=== PATIENT | male | born 1970 | race Caucasian/White ===

== ENCOUNTER 2025-03-08 14:04 | Outpatient (OUT) | payer OTHER, SELFPAY ==
--- NOTE | 2025-03-08 14:18 | ECG_ITS ---
[facility] Test Date: 2025-03-08 Pat Name: AMANDA COHN Department: Room: - Gender: Male Ed Tech: : 1970 Requested By: JASON QUINONEZ Order Number: [id number] Reading MD: MARIAM RAMOS Measurements Intervals [place] Rate: 57 P: 5 PA: 128 QRS: 24 QRSD: 101 T: 19 QT: 407 QTc: 400 Interpretive Statements SINUS BRADYCARDIA No previous ECG available for comparison Electronically Signed On 03-09-2025 16:42:55 EST by MARIAM RAMOS
--- NOTE | 2025-03-08 14:42 | XR_ITS ---
[address] [address] Patient Name: AMANDA COHN MRN: [id number] date: 1970 Sex: M Assigned Patient Location: [facility] Current Patient Location: [facility] Accession/Order Number: [id number] Exam Date: 03/08/2025 14:53 Report Date: 03/08/2025 15:07 At the request of: JASON QUINONEZ MD Procedure: XR chest 2V Chest 2 views CLINICAL HISTORY: Preop exam COMPARISON: None FINDINGS: Heart normal in size. Lungs are clear. No free air. XR/XR chest 2V IMPRESSION: NO ACUTE CARDIOPULMONARY ABNORMALITY. Impression dictated by: Epi Chávez Jr. DFainaOFaina 03/08/2025 3:07 PM Dictation Location: [place] [address] Electronically authenticated by: [id number] Y Date: 03/08/2025 15:07
--- NOTE | 2025-03-08 14:51 | P.GSHP_ITS ---
History of Present Illness History of Present Illness Chief complaint: penile and scrotal condyloma Narrative: Patient presents for presurgical testing. Please see HPI from Dr. Finn dated February 24, 2025. Review of Systems ROS Narrative Please see ROS from Dr. Finn dated February 24, 2025. [facility] History (Updated 03/08/25 @ 14:48 by Radha Stoner NP) Back pain ?M54.9 - Dorsalgia, unspecified (ICD-10) GERD (gastroesophageal reflux disease) ?K21.9 - Gastro-esophageal reflux disease without esophagitis (ICD-10) Condyloma acuminatum of penis ?A63.0 - Anogenital (venereal) warts (ICD-10) Condyloma acuminatum of scrotum ?A63.0 - Anogenital (venereal) warts (ICD-10) ?N51 - Disorders of male genital organs in diseases classified elsewhere (ICD-10) Surgical History (Updated 03/08/25 @ 14:40 by Radha Stoner NP) History of tonsillectomy ?Z90.89 - Acquired absence of other organs (ICD-10) History of testicular surgery ?Z98.890 - Other specified postprocedural states (ICD-10) History of foot surgery ?Z98.890 - Other specified postprocedural states (ICD-10) History of cholecystectomy ?Z90.49 - Acquired absence of other specified parts of digestive tract (ICD- 10) Social History (Updated 03/08/25 @ 14:37 by Radha Stoner NP) Within the past year, how often did you have a drink containing alcohol: never Score interpretation: A score less than 4 is consistent with normal alcohol consumption. 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 Highest level of school completed/degree received: high school graduate Meds Home Medications and Allergies Home Medications ?Medication ?Instructions ?Recorded ?Confirmed ?Type omeprazole 20 mg capsule,delayed 20 mg PO DAILY 03/08/25 History release Allergies Allergy/AdvReac Type Severity Reaction Status Date / Time No Known Drug Allergies Allergy Verified 03/08/25 14:36 Exam Narrative Exam Narrative: Constitutional: Awake, alert, comfortable, well-appearing, nontoxic, interactive, vital signs as charted Head: Normocephalic, atraumatic Neck: Supple, normal appearance, normal range of motion, no meningeal signs, no lymphadenopathy Respiratory: No respiratory distress, rhonchi bilateral bases on auscultation Cardiovascular: Regular rate and rhythm, strong and regular heart tones Abdomen: Nontender, normal bowel sounds, soft, no CVA tenderness Musculoskeletal: Normal gait, no swelling or edema Skin: No rashes or induration, no lesions, only visible skin inspected Neuro: No neurological deficits, normal sensation Psychiatric: Oriented ?3, normal affect Assessment and Plan Assessment and Plan (1) Condyloma acuminatum of penis: (2) Condyloma acuminatum of scrotum: Plan Excision of scrotal condyloma and CO2 laser of penile condyloma scheduled with Dr. Finn March 16, 2025.
[2025-03-08 15:13] LABS: Hematocrit 46.2 % (42.0-54.0); Hemoglobin 16.6 g/dL (14.0-18.0); Immature Granulocytes Abs Auto 0.02 10^3/uL (0.00-0.03); Immature Granulocytes Pct Auto 0.3 % (0.0-0.5); Lymphocytes Absolute Auto 2.5 10^3/uL (1.2-3.8); Mean Corpuscular HGB Conc 35.9 g/dL (29.9-35.2); Mean Corpuscular Hemoglobin 33.1 pg (25.9-34.0); Mean Corpuscular Volume 92.0 fL (80.0-94.0); Platelet Count 205 10^3/uL (150-450); Red Blood Count 5.02 10^6/uL (4.70-6.10); White Blood Count 6.3 10^3/uL (4.0-11.0)
[2025-03-08 15:19] LABS: Anion Gap 12.7; Blood Urea Nitrogen 9.0 mg/dL (7.0-18.0); Calcium 8.7 mg/dL (8.5-10.1); Carbon Dioxide 28.0 mmol/L (21.0-32.0); Chloride 105 mmol/L (98-107); Estimated GFR (African America >60 (>=60 mL/min/1.73m^2); Estimated GFR (Non-African Ame >60 (>=60 mL/min/1.73m^2); Glucose 90 mg/dL (74-106); Potassium 3.7 mmol/L (3.5-5.1); Sodium 142 mmol/L (136-145)
[2025-03-08 15:34] LABS: INR 1.03; Partial Thromboplastin Time 25.2 sec (22.3-36.2); Prothrombin Time 10.8 sec (9.0-11.6)
[2025-03-08 15:41] LABS: Prostate Specific Antigen Dx 2.76 ng/mL (<=4.00)
== END 2025-03-08 14:05 | disposition home or self-care (01) ==
LOC: PST 14:05
PROVIDERS: Visit Provider Urology
DX: Z01.810 Encounter for preprocedural cardiovascular examination (principal); Z01.812 Encounter for preprocedural laboratory examination; Z01.818 Encounter for other preprocedural examination; A63.0 Anogenital (venereal) warts
CPT/HCPCS: 36415; 71046; 80048; 84153; 85025; 85610; 85730; 93005; G0463

== ENCOUNTER 2025-03-16 09:54 | Day surgery (SDC) | payer OTHER, SELFPAY ==
[2025-03-08 14:47] VITALS: BP 139/86; PULSE 65; TEMP 36.4; O2SAT 98; BMI 30.1
[2025-03-16] VITALS (9 sets, daily range): BP systolic 105–138; BP diastolic 56–92; PULSE 59–92; TEMP 36.2–36.3; O2SAT 90–97; BMI 30.9
--- OUTSIDE RECORDS SUMMARY | 2025-03-16 09:57 | XMS_ITS | Clinical Summary ---
Author Organization [facility] Address [address] [place] [id number] Care Team Providers Care Japanese Interpreter Name Role Phone Unavailable Primary Care Provider Unavailabl e Allergies No known active allergies Medications MedicationSigDispense QuantityRefillsLast FilledStart DateEnd DateStatus meclizine (Antivert) 25 MG tablet Take 25 mg by mouth 3 (three) times a day as needed for dizziness.05/05/2022 Active ondansetron ODT (Zofran-ODT) 4 MG disintegrating tablet Take 4 mg by mouth every 8 (eight) hours if needed.05/05/2022ctive Family History RelationNameStatusCommentsFatherOtherMotherOther Social History Tobacco UseTypesPacks/DayYears UsedDateSmoking Tobacco: Unknown Tobacco Cessation:Counseling Given: Not Answered Alcohol UseStandard Drinks/WeekCommentsNot Currently0 (1 standard drink = 0.6 oz pure alcohol)Sex and Gender InformationValueDate RecordedSex Assigned at Not on fileLegal PkrOaju1808/29/2022 12:07 PM EDTGender IdentityNot on fileSexual OrientationNot on file Last Filed Vital Signs Vital SignReadingTime TakenCommentsBlood Pressure--Pulse--Temperature-- Respiratory Rate--Oxygen Saturation--Inhaled Oxygen Concentration--Nhycma46.4 kg (217 lb)09/12/2022 3:04 PM YRPYvrbpm806.3 cm (5' 11 )09/12/2022 3:04 PM EDTBody Mass Index30.27009/12/2022 3:04 PM EDT Plan of Treatment Not on file Insurance
--- OUTSIDE RECORDS SUMMARY | 2025-03-16 09:57 | XMS_ITS | Patient Health Record ---
Author Organization [facility] Address [address] [place] [address] Care Team Providers Care Environmental Engineering Assistant Name Role Phone Jimmy Jun Primary Care Provider Allergies No Known Allergies Reason For Referral Reason *FAXED 01/28, 01/29 Pt wnts excision of condyloma accuminatum of scrotum. Diagnosis 1 Condyloma acuminatum (A63.0) Referral Organization [facility] ices Referring Provider First Name Jun Referring Provider Last Name Jimmy [facility] . Referred Provider Specialty Urology Referral Priority Routine Medications Medication SIG (Take, Route, Frequency, Duration) Notes Start Date End Date Status Imiquimod 5 % Cream 1 application at bed time, leave on for 8 hours then wash off Externally Three times a Week; Duration: 35 days 5004/07/2025ctiveOmeprazole 20 MG Capsule Delayed ReleaseTAKE 1 CAPSULE BY MOUTH ONCE DAILY 30 MINUTES BEFORE MORNING MEAL Orally Once a day; Duration: 90 daysActive Social History Tobacco Use: Social History Observation Description Date Details (start date - stop date) Never Smoker NA - NA Sex Assigned At : Social History Observation Description Sex Assigned At Male Social History GeneralSocial InfoQuestionAnswerNotesDepression Screening (PHQ-9):Little interest or pleasure in doing thingsNot at allFeeling down, depressed, or hopelessNot at allTrouble falling or staying asleep, or sleeping too muchNot at allFeeling tired or having little energyNot at allPoor appetite or overeatingNot at allFeeling bad about yourself-or that you are a failure or have let yourself or your family downNot at allTrouble concentrating on things, such as reading the newspaper or watching televisionNot at allMoving or speaking so slowly that other people could have noticed. Or the opposite being so fidgetyor restless that you have been moving around a lot more than usualNot at allThoughts that you would be better off , or of hurting yourself in some wayNot at allTotal Ujdyb4Jovg/Alcohol:Social InfoQuestionAnswerNotesAUDIT-C (Standard)Did you have a drink containing alcohol in the past year?OxZgsjwt4MucnpbvcvaqlzoZyzvcyjv Tobacco Use:Social InfoQuestionAnswerNotesTobacco Control (Standard)Tobacco use: Nonsmoker Problems Problem Type SNOMED Code ICD Code Onset Dates Problem Status W/U Status Risk Notes Problem Anxiety (73893765) Anxiety (F41.9) ActiveconfirmedProblemAnogenital warts (113207405)Condyloma acuminatum (A63.0) ActiveconfirmedProblemCervical radiculopathy (99892272)Cervical radiculopathy (M54.12)ActiveconfirmedProblemLoss of balance (086187229)Loss of balance (R26.89)ActiveconfirmedProblemAcquired hammer toe of left foot (0937873462595191)Hammer toe of left foot (M20.42)ActiveconfirmedProblemAchilles bursitis (024365934)Achilles tendinitis of right lower extremity (M76.61)Active confirmedProblemGastroesophageal reflux disease (463788965)Gastroesophageal reflux disease, unspecified whether esophagitis present (K21.9)Activeconfirmed Vital Signs Heart Rate 84 /min 01/27/2025 Shginbfdely02.0 degrees Toqjrszpby97/05/2025Respiratory Rate20 /min01/27/2025 Wgfqyuoo85 %01/27/2025lood pressure uiooydikl44 mm Hg01/27/20257009Gponvr03 in 01/27/2025lood pressure ntiapuan739 mm Hg01/27/20256266Edeoep892.8 lbs103/29/2024MI 30.93 kg/m201/27/2025 Encounters Encounter Location Date Provider Diagnosis [facility] [address] [place] [address] 01/27/2025 Jun Marquez Elevated blood pressure reading R03.0 ; Condyloma acuminatum A63.0 and Screening due Z13.9 Assessments Encounter Date Diagnosis (ICD Code) Assessment Notes Treatment Notes Treatment Clinical Notes Section Notes 01/27/2025 Condyloma acuminatum (ICD-10 - A 63.0) 01/27/2025Elevated blood pressure reading (ICD-10 - R03.0)For patient's elevated blood pressure at this time, I informed the patient to watch his sodium intake. He is to undertake a DASH diet. Patient voices understanding to this. I have also given the patient a written prescription for a blood pressure cuff and monitor. He notes that he will check his blood pressure once per day and call in his blood pressure readings at home over the next week or 2. This is to rule out whitecoat hypertension. For his condyloma acuminatum, I will send imiquimod creamat this time. Patient would like the lesion to be cut off as it is bothering him. Due to its size and location, I will refer to urology for this procedure. I informed the patient that this is a sexually transmitted condition. I informed him to refrain from direct touch of the area during sexual acti vities. He can use dental dam material in the area to keep it covered to prevent direct contact with other skin. All questions and concerns were addressed with the patient. We will follow-up once patient provides us with blood pressure readings at home over the next week or 2. Screening due includes attached labs. Patient notes he will get these done in the morning soon when he is fasting. 01/27/2025Screening due (ICD-10 - Z13.9) Plan Of Treatment Pending Test Test Name Order Date Comprehensive Metabolic Panel 01/27/2025 Lipid Panel 01/27/2025 Prostate Specific AG w RFLX 01/27/2025 Thyroid Stim Hormone w/Rflx 01/27/2025 Complete Blood Count Auto Diff HIV 1/O/2 Antigen/Antibody 01/27/2025 Hepatitis C Ab [place] 01/27/2025 Insurance Providers Payer Name Payer Address Payer Phone Subscriber Number Group Number Insured Name Patient Relationship to Insured Coverage Start Date Coverage End Date [employer] [place] [employer] [address] [place] [address] [id number] Bruna COHN - patient is the [id number] 2022Wrap [facility] [address] [place] [id number], JOHNSelf - patient is the [id number] 20[facility] after [employer]-termed [address] [place] [id number], JOHNSelf - patient [id number] CLAIMS DEPT [place] [id number], JOHN Self - patient is the [id number] Medical (General) History Surgical History Surgery Date(Month/Year) testicular surgery 2021 foot surgery 2018 gallbladder removal 2010 Hospitalization History Reason Date(Month/Year) see above
[2025-03-16] MEDS: CEFAZOLIN SODIUM 2 GM/50 ML D5W PREMIX IV (13:32)
[2025-03-16] MEDS: BACITRACIN OINTMENT 28.4 GM TUBE 1 APPLIC TOPICAL (14:49)
--- NOTE | 2025-03-16 14:55 | PM.URSON ---
Urology Surgery Operative Note Operative Note Procedure Date: 03/16/25 Time Out Performed: yes Pre-op Diagnosis: Penile and scrotal condyloma Post-op Diagnosis: same as pre-op Procedures performed: 1. Excision of large 4 cm condyloma on the lateral edge of the left sided scrotum. 2. CO2 laser of over 30 condyloma along the right lateral shaft, glans, frenulum and right upper scrotum. Anesthesia: General-LMA Primary Surgeon: Iraj Finn Complications: None Estimated blood loss (mL): 3 Findings: Multiple condyloma over the penis and right scrotum. Large condyloma over the lateral left scrotal area Specimens: 1. Excision of large left lateral scrotal condyloma. 2. Excision of 1/2 cm condyloma lateral to the left Fernandez scrotum Drains: None Indications for Procedures: This gentleman has multiple condyloma and he is desirous for removal. He understands that we will make an elliptical incision around the large condyloma lateral to his left side of his scrotum and this will get removed in full. He also understands that there will be multiple craters from the sites that the CO2 laser is used to ablate the numerous condyloma along the penis and upper right scrotum. He has signed an informed consent for these procedures after the risks were explained to him in great detail. Some of these risks include bleeding, infection, recurrence of condyloma, scar formation along the penis and scrotum from the CO2 laser to name a few. Detailed description of Procedure: The patient was brought to the operating room and kept on the operating room table in the supine position. SCDs were placed on his lower extremities and turned on and functioning during the entire case. Timeout was done by all parties in the room. We all agreed upon the patient's identification and the planned procedures for this patient. General anesthesia was then administered via LMA. The genitalia and area lateral to the left hemiscrotum were sterilely prepped and draped in the usual fashion. I started on the large condyloma just lateral to the lateral left edge of the scrotum. I made an elliptical incision with a 15 blade scalpel encompassing the entire large condyloma. This was sharply dissected out and amputated. It was sent for permanent sections. The needle tip Bovie cautery was used to coagulate any tiny subcu bleeders. Once I had perfect hemostasis I then began closing the edges with 4-0 nylon in an interrupted fashion. The edges were coming together very nicely and then I realized that there was a small condyloma just lateral to the incision. I then used the CO2 laser and simply ablated this at 4 W continuous. I then finished my closure with 4-0 nylon in an interrupted fashion. It looked excellent. My attention was then turned to the penis and scrotum. There were numerous condyloma in a fairly tight knit group along the right lateral shaft and the right upper hemiscrotum. There were a couple on the frenulum and the glans and 1 large 1 at the intertriginous area on the right side. All of these were lasered with the CO2 laser at 4 W. There were over 30 that were treated. Acetic acid was then soaked over the area and a few acetowhite areas were found and these were similarly lasered. Upon completion bacitracin ointment was placed over all of the craters from the laser. It was also placed on the incision. A Vaseline gauze was placed over the incision. A plain gauze was then placed over this. The patient was then transferred [facility] bed and wheeled to PACU in stable condition.
--- NOTE | 2025-03-16 16:18 | PC.NURSE ---
1600: pt ambulates to bathroom,voids without difficulty.urine clear and yellow.
== END 2025-03-16 16:10 | disposition home or self-care (01) ==
PROVIDERS: Visit Provider Urology
PROC: (CPT 920; principal; 2025-03-16 11:45)
DX: A63.0 Anogenital (venereal) warts (principal); K21.9 Gastro-esophageal reflux disease without esophagitis; I10 Essential (primary) hypertension; Z90.49 Acquired absence of other specified parts of digestive tract
CPT/HCPCS: 54060; 54065; 36415; 88305; J0690; J1100; J1885; J2250; J2371; J2405; J2704; J3010